=== PATIENT | male | born 1980 | race Caucasian/White ===

== ENCOUNTER → 2020-05-25 | Outpatient (CLI) | payer OTHER ==
[2020-05-25 19:25] LABS: INR 0.94 (0.90-1.11); Prothrombin Time 10.3 sec (9.9-11.9)
[2020-05-25 20:45] LABS: HIV 2 AB Non-Reactive (Non-Reactive); HIV AB P24 Non-Reactive (Non-Reactive); HIV P24 AG Non-Reactive (Non-Reactive)
[2020-05-25 23:31] LABS: Hepatitis A Antibody IgM Non-Reactive (Non-Reactive); Hepatitis B Core IgM Non-Reactive (Non-Reactive); Hepatitis B Surface Antigen Non-Reactive (Non-Reactive); Hepatitis C IgG Antibody Reactive (Non-Reactive)
[2020-05-31 14:43] LABS: HCV Qualitative Result DETECTED (Not detected); HCV Quant Log 7.12 (<1.08)
== END | disposition home or self-care (01) ==
LOC: LABWHC1 10:40
PROVIDERS: ATTEND Nurse Practitioner
DX: B18.2 Chronic viral hepatitis C (principal)
CPT/HCPCS: 36415; 80074; 81596; 85610; 87390; 87522; 87902

== ENCOUNTER → 2020-05-29 | Outpatient (CLI) | payer OTHER ==
--- NOTE | 2020-05-29 15:55 | US ---
EXAMINATION TYPE: US liver DATE OF EXAM: 05/29/2020 COMPARISON: NONE CLINICAL HISTORY: B18.2 CHRONIC VIRAL HEP C. EXAM MEASUREMENTS: Liver Length: 13.4 cm Gallbladder Wall: Surgically absent CBD: 0.3 cm Right Kidney: 10.1 x 4.1 x 4.9 cm Pancreas: isoechoic oval area anterior to pancreas, possible lymph node measuring 1.1 0.6 x 0.8cm Liver: wnl Gallbladder: Surgically absent Evidence for sonographic Nieto's sign: no CBD: wnl Right Kidney: wnl IMPRESSION: 1. Oval isoechoic area adjacent to the pancreas. Lymph node could be within the differential. Recomme nd contrast CT abdomen with pancreas protocol for closer evaluation.
== END ==
LOC: RADUSWWP 07:14
PROVIDERS: ATTEND Internal Medicine Gastroenterology
DX: B18.2 Chronic viral hepatitis C (principal); K86.9 Disease of pancreas, unspecified
CPT/HCPCS: 76705

== ENCOUNTER 2020-09-14 07:20 | Inpatient (IN) | payer OTHER ==
--- NOTE | 2020-09-14 08:02 | ED ---
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 states last couple of days she's been hallucinating. Patient also had a visual problem 2 days ago for about 12 hours she stated he couldn't see out of his left eye very well. Patient states it's all resolved. Patient denies any headache patient denies any numbness or focal weakness. Patient states morning for about 5 minutes he saw a lump in his stomach that went up into his chest he said he could actually see a lump about 3 inches above his chest wall. Patient's did not see this which she was not with him at the time. Patient states it hurt very very little but it was more like a slight discomfort but there was no difficulty breathing or shortness of breath patient denies any recent fever chills patient denies any nausea vomiting diarrhea. Patient states currently he has no symptoms whatsoever. Patient's does state that he continues to have hallucinations and she's not sure if this was a hallucination or not. - Related Data Home Medications Medication Instructions Recorded Confirmed Acetaminophen [Tylenol] 650 mg PO Q4H PRN 09/14/20 09/14/20 Omeprazole 20 mg PO DAILY 09/14/20 09/14/20 Allergies Allergy/AdvReac Type Severity Reaction Status Date / Time No Known Allergies Allergy Verified 09/14/20 09:45 Review of Systems ROS Statement: Those systems with pertinent positive or pertinent negative responses have been documented in the HPI. ROS Other: All systems not noted in ROS Statement are negative. Past Medical History History of Any Multi-Drug Resistant Organisms: None Reported Past Surgical History: Cholecystectomy Additional Past Surgical History / Comment(s): Barretts Esophogus, GERD, HEP C, right knee pain sx Past Psychological History: No Psychological Hx Reported Smoking Status: Current every day smoker Past Alcohol Use History: Occasional Past Drug Use History: Marijuana General Exam - General Exam Comments Initial Comments: GENERAL: Patient is well-developed and well-nourished. Patient is nontoxic and well-h ydrated and is in mild distress. ENT: Neck is soft and supple. No significant lymphadenopathy is noted. Oropharynx is clear. Moist mucous membranes. Neck has full range of motion without eliciting any pain. EYES: The sclera were anicteric and conjunctiva were pink and moist. Extraocular mov ements were intact and pupils were equal round and reactive to light. Eyelids were unremarkable. PULMONARY: Unlabored respirations. Good breath sounds bilaterally. No audible rales rhonchi or wheezing was noted. CARDIOVASCULAR: Patient is tachycardic at 120 beats a minute ABDOMEN: Patient has some expiratory wheezing. SKIN: Skin is clear with no lesions or rashes and otherwise unremarkable. NEUROLOGIC: Patient is alert and oriented x3. Cranial nerves II through XII are grossly intact. Motor and sensory are also intact. Normal speech, volume and content. Symmetrical smile. MUSCULOSKELETAL: Normal extremities with adequate strength and full range of motion. No lower extremity swelling or edema. No calf tenderness. LYMPHATICS: No significant lymphadenopathy is noted PSYCHIATRIC: Normal psychiatric evaluation. The patient does talk about this bulge in his abdomen up into his chest that was higher than his chest wall and may or may not be a hallucinations difficult to tell Limitations: no limitations Course Vital Signs 09/14/20 09/14/20 09/14/20 07:21 08:26 08:30 Temperature 97.6 F 99 F Pulse Rate 98 98 Respiratory 16 14 Rate Blood Pressure 118/73 136/107 O2 Sat by Pulse 99 97 Oximetry 09/14/20 09:10 Temperature Pulse Rate 103 H Respiratory 18 Rate Blood Pressure 137/84 O2 Sat by Pulse 99 Oximetry Medical Decision Making - Medical Decision Making EKG shows sinus tachycardia at 114 bpm DC interval 242 QRS is 92 QT interval 336 QTC is 463. Patient's EKG shows no ST segment elevation or depression. CT of the brain shows no acute normalities. Chest x-ray shows no acute normalities. Patient does admit to doing methamphetamine. I spoke with Mr. Charles hospitalist agreed to admit the patient admitted the patient wrote admitting orders. - Lab Data Result diagrams: 09/14/20 07:55 09/14/20 07:55 Lab Results 09/14/20 09/14/20 09/14/20 Range/Units 07:55 07:55 07:55 WBC 10.2 (3.8-10.6) k/uL RBC 4.92 (4.30-5.90) m/uL Hgb 17.4 (13.0-17.5) gm/dL Hct 49.0 (39.0-53.0) % MCV 99.7 (80.0-100.0) fL MCH 35.4 H (25.0-35.0) pg MCHC 35.5 (31.0-37.0) g/dL RDW 12.8 (11.5-15.5) % Plt Count 274 (150-450) k/uL MPV 7.3 Neutrophils % 64 % Lymphocytes % 25 % Monocytes % 7 % Eosinophils % 1 % Basophils % 1 % Neutrophils # 6.6 (1.3-7.7) k/uL Lymphocytes # 2.6 (1.0-4.8) k/uL Monocytes # 0.8 (0-1.0) k/uL Eosinophils # 0.1 (0-0.7) k/uL Basophils # 0.1 (0-0.2) k/uL PT 10.7 (9.0-12.0) sec INR 1.0 (<1.2) APTT 24.6 (22.0-30.0) sec Sodium 133 L (137-145) mmol/L Potassium 3.5 (3.5-5.1) mmol/L Chloride 96 L (98-107) mmol/L Carbon Dioxide 26 (22-30) mmol/L Anion Gap 11 mmol/L BUN 26 H (9-20) mg/dL Creatinine 1.40 H (0.66-1.25) mg/dL Est GFR (CKD-EPI)AfAm 72 (>60 ml/min/1.73 sqM) Est GFR (CKD-EPI)NonAf 63 (>60 ml/min/1.73 sqM) Glucose 119 H (74-99) mg/dL Calcium 10.3 H (8.4-10.2) mg/dL Magnesium 2.0 (1.6-2.3) mg/dL Total Bilirubin 1.4 H (0.2-1.3) mg/dL AST 49 (17-59) U/L ALT 31 (4-49) U/L Alkaline Phosphatase 75 (38-126) U/L Troponin I (0.000-0.034) ng/mL Total Protein 8.1 (6.3-8.2) g/dL Albumin 5.1 H (3.5-5.0) g/dL Amylase 63 (30-110) U/L Lipase 125 (23-300) U/L Urine Opiates Screen (NotDetected) Ur Oxycodone Screen (NotDetected) Urine Methadone Screen (NotDetected) Ur Propoxyphene Screen (NotDetected) Ur Barbiturates Screen (NotDetected) U Tricyclic Antidepress (NotDetected) Ur Phencyclidine Scrn (NotDetected) Ur Amphetamines Screen (NotDetected) U Methamphetamines Scrn (NotDetected) U Benzodiazepines Scrn (NotDetected) Urine Cocaine Screen (NotDetected) U Marijuana (THC) Screen (NotDetected) Serum Alcohol <10 mg/dL 09/14/20 09/14/20 Range/Units 07:55 07:56 WBC (3.8-10.6) k/uL RBC (4.30-5.90) m/uL Hgb (13.0-17.5) gm/dL Hct (39.0-53.0) % MCV (80.0-100.0) fL MCH (25.0-35.0) pg MCHC (31.0-37.0) g/dL RDW (11.5-15.5) % Plt Count (150-450) k/uL MPV Neutrophils % % Lymphocytes % % Monocytes % % Eosinophils % % Basophils % % Neutrophils # (1.3-7.7) k/uL Lymphocytes # (1.0-4.8) k/uL Monocytes # (0-1.0) k/uL Eosinophils # (0-0.7) k/uL Basophils # (0-0.2) k/uL PT (9.0-12.0) sec INR (<1.2) APTT (22.0-30.0) sec Sodium (137-145) mmol/L Potassium (3.5-5.1) mmol/L Chloride (98-107) mmol/L Carbon Dioxide (22-30) mmol/L Anion Gap mmol/L BUN (9-20) mg/dL Creatinine (0.66-1.25) mg/dL Est GFR (CKD-EPI)AfAm (>60 ml/min/1.73 sqM) Est GFR (CKD-EPI)NonAf (>60 ml/min/1.73 sqM) Glucose (74-99) mg/dL Calcium (8.4-10.2) mg/dL Magnesium (1.6-2.3) mg/dL Total Bilirubin (0.2-1.3) mg/dL AST (17-59) U/L ALT (4-49) U/L Alkaline Phosphatase (38-126) U/L Troponin I 0.014 (0.000-0.034) ng/mL Total Protein (6.3-8.2) g/dL Albumin (3.5-5.0) g/dL Amylase (30-110) U/L Lipase (23-300) U/L Urine Opiates Screen Not Detected (NotDetected) Ur Oxycodone Screen Not Detected (NotDetected) Urine Methadone Screen Not Detected (NotDetected) Ur Propoxyphene Screen Not Detected (NotDetected) Ur Barbiturates Screen Not Detected (NotDetected) U Tricyclic Antidepress Not Detected (NotDetected) Ur Phencyclidine Scrn Not Detected (NotDetected) Ur Amphetamines Screen Detected H (NotDetected) U Methamphetamines Scrn Detected H (NotDetected) U Benzodiazepines Scrn Not Detected (NotDetected) Urine Cocaine Screen Not Detected (NotDetected) U Marijuana (THC) Screen Detected H (NotDetected) Serum Alcohol mg/dL Disposition Clinical Impression: Visual disturbance, TIA (transient ischemic attack), Chest pain, Renal insufficiency, Methamphetamine abuse, Hallucinations Disposition: ADMITTED IP TO THIS HOSP Referrals: Bernardo Brown MD [Primary Care Provider] - 1-2 days Time of Disposition: 09:45
--- NOTE | 2020-09-14 08:16 | CT ---
EXAMINATION TYPE: CT brain wo con DATE OF EXAM: 09/14/2020 COMPARISON: None HISTORY: loss of vision Lt eye, hallucinations CT DLP: 1074.[address] of the brain was performed. The ventricles, basal cisterns and sulci overlying the cerebral convexities demonstrate a normal appe arance. There is no evidence for intracranial hemorrhage or sulcal effacement. No mass effects are seen. Osseous calvarium is intact. If symptoms persist consider MRI as clinically warranted. IMPRESSION: 1. No acute intracranial process is seen at this time.
[2020-09-14] MEDS ORDERED: SODIUM CHLORIDE 0.9% 1,000 ML IV ONE (08:20)
[2020-09-14] MEDS ORDERED: SODIUM CHLORIDE 0.9% 500 ML 500 ML IV ONE (08:20)
[2020-09-14 08:21] LABS: Basophils # (A) 0.1 k/uL (0-0.2); Basophils % (A) 1 %; Eosinophils # (A) 0.1 k/uL (0-0.7); Eosinophils % (A) 1 %; HGB 17.4 gm/dL (13.0-17.5); Lymphocytes # (A) 2.6 k/uL (1.0-4.8); Lymphocytes % (A) 25 %; MCH 35.4 pg (25.0-35.0); MCHC 35.5 g/dL (31.0-37.0); MCV 99.7 fL (80.0-100.0); Mean Platelet Volume 7.3; Monocytes # (A) 0.8 k/uL (0-1.0); Monocytes % (A) 7 %; Neutrophils # (A) 6.6 k/uL (1.3-7.7); Neutrophils % (A) 64 %; Platelet Count 274 k/uL (150-450); RBC 4.92 m/uL (4.30-5.90); RDW 12.8 % (11.5-15.5); WBC 10.2 k/uL (3.8-10.6)
--- NOTE | 2020-09-14 08:22 | XR ---
EXAMINATION TYPE: XR chest 2V DATE OF EXAM: 09/14/2020 COMPARISON: NONE HISTORY: odd sensation in his chest this am. Chest distended and felt like something came out from hi s lower ribcage lasted about 5 mins. TECHNIQUE: Frontal and lateral views of the chest are obtained. FINDINGS: Heart size is within normal limits. Trachea is midline. No focal consolidation, pneumothor ax or pleural effusion. Hyperaeration lungs, flattening of the diaphragms and increased retrosternal airspace suggestive of COPD. IMPRESSION: 1. No acute pulmonary disease. COPD.
[2020-09-14 08:29] LABS: ALT 31 U/L (4-49); AST 49 U/L (17-59); African American GFR (CKD) 72 (>60 ml/min/1.73 sqM); Albumin 5.1 g/dL (3.5-5.0); Alcohol <10 mg/dL; Alkaline Phosphatase 75 U/L (38-126); Amylase 63 U/L (30-110); Anion Gap 11 mmol/L; Blood Urea Nitrogen 26 mg/dL (9-20); Calcium 10.3 mg/dL (8.4-10.2); Carbon Dioxide 26 mmol/L (22-30); Chloride 96 mmol/L (98-107); Glucose 119 mg/dL (74-99); Lipase 125 U/L (23-300); Non-African American GFR(CKD) 63 (>60 ml/min/1.73 sqM); Potassium 3.5 mmol/L (3.5-5.1); Sodium 133 mmol/L (137-145); Total Bilirubin 1.4 mg/dL (0.2-1.3); Total Protein 8.1 g/dL (6.3-8.2)
[2020-09-14 08:34] LABS: Amphetamine Screen,Urine Detected (NotDetected); Barbiturate Screen,Urine Not Detected (NotDetected); Benzodiazepines Screen,Urine Not Detected (NotDetected); Cocaine Screen,Urine Not Detected (NotDetected); Methadone Screen, Urine Not Detected (NotDetected); Opiate Screen,Urine Not Detected (NotDetected); Oxycodone Screen, Urine Not Detected (NotDetected); Phencyclidine Screen,Urine Not Detected (NotDetected); Tricyclic Antidepressant,Urine Not Detected (NotDetected); Urn Cannabinoid Scrn Detected (NotDetected)
[2020-09-14 08:37] LABS: Partial Thromboplastin Time 24.6 sec (22.0-30.0); Prothrombin Time 10.7 sec (9.0-12.0)
[2020-09-14] MEDS ORDERED: ASPIRIN 325 MG TAB PO STA (09:38)
[2020-09-14] MEDS ORDERED: LORazepam 2 MG/ML INJ IV STA ×2 (13:09→15:39)
[2020-09-14] MEDS: NICOTINE 21MG/24HR PATCH TRANSDERM SCH (13:32)
[2020-09-14] MEDS ORDERED: LORazepam 1 MG TAB PO PRN (16:47)
--- NOTE | 2020-09-14 16:55 | P.HPIM ---
History of Present Illness Patient is a pleasant 40-year-old male came in because of hallucinations. Patient is definitely hyperactive with a dilated pupils consistent with the amphetamine overdose. 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 Patient is definitely dehydrated with a serum creatinine of 1.40. Additionally . The tell me that the patient had an episode of for double vision in the right eye and flickering of her right eye lid. Which lasted for about an hour. Because of this reason ER consulted the neurology. Although this may be totally related to his drug use. CT of the head did not show any significant abnormality. REVIEW OF SYSTEMS: CONSTITUTIONAL: No fever, no malaise, no fatigue. HEENT: No recent visual problems or hearing problems. Denied any sore throat. CARDIOVASCULAR: No chest pain, orthopnea, PND, no palpitations, no syncope. PULMONARY: No shortness of breath, no cough, no hemoptysis. GASTROINTESTINAL: No diarrhea, no nausea, no vomiting, no abdominal pain. NEUROLOGICAL: No headaches, no weakness, no numbness. HEMATOLOGICAL: Denies any bleeding or petechiae. GENITOURINARY: Denies any burning micturition, frequency, or urgency. MUSCULOSKELETAL/RHEUMATOLOGICAL: Denies any joint pain, swelling, or any muscle pain. ENDOCRINE: Denies any polyuria or polydipsia. The rest of the 14-point review of systems is negative. PHYSICAL EXAMINATION: GENERAL: The patient is alert and oriented x3, not in any acute distress. Well developed, well nourished. She and is hyperactive HEENT: Dilated pupils nonreactive. EOMI. No scleral icterus. No conjunctival pallor. Normocephalic, atraumatic. No pharyngeal erythema. No thyromegaly. CARDIOVASCULAR: S1 and S2 present. No murmurs, rubs, or gallops. PULMONARY: Chest is clear to auscultation, no wheezing or crackles. ABDOMEN: Soft, nontender, nondistended, normoactive bowel sounds. No palpable organomegaly. MUSCULOSKELETAL: No joint swelling or deformity. EXTREMITIES: No cyanosis, clubbing, or pedal edema. NEUROLOGICAL: Gross neurological examination did not reveal any focal deficits. SKIN: No rashes. Assessment and plan -Amphetamine and marijuana overdose: We'll use as needed Ativan for sleep and anxiety. -Dehydration secondary to amphetamines patient will be started on 1 13 mL of normal saline. -Transient episode of double vision vision in the right eye I do not believe patient has a TIA and this is again related to drug use -Hypovolemic hyponatremia secondary to dehydration IV fluids as mentioned above -History of hepatitis C related to follow up with gastro-oncology as an outpatient DVT prophylaxis: Early ambulation, GI prophylaxis Pepcid Past Medical History Past Medical History: GERD/Reflux History of Any Multi-Drug Resistant Organisms: None Reported Past Surgical History: Cholecystectomy Additional Past Surgical History / Comment(s): Barretts Esophogus, GERD, HEP C, right knee pain sx Past Anesthesia/Blood Transfusion Reactions: No Reported Reaction Past Psychological History: No Psychological Hx Reported Smoking Status: Current every day smoker Past Alcohol Use History: Occasional Past Drug Use History: Marijuana Medications and Allergies Home Medications Medication Instructions Recorded Confirmed Type Acetaminophen [Tylenol] 650 mg PO Q4H PRN 09/14/20 09/14/20 History Omeprazole 20 mg PO DAILY 09/14/20 09/14/20 History Allergies Allergy/AdvReac Type Severity Reaction Status Date / Time No Known Allergies Allergy Verified 09/14/20 09:45 Physical Exam Vitals: Vital Signs Temp Pulse Resp BP BP Pulse Ox 09/14/20 16:00 98.2 F 103/65 97 09/14/20 12:37 102 H 19 131/82 98 09/14/20 10:00 101 H 18 137/84 97 09/14/20 09:10 103 H 18 137/84 99 09/14/20 08:30 98 14 136/107 97 09/14/20 08:26 99 F 09/14/20 07:21 97.6 F 98 16 118/73 99 Intake and Output 09/14/20 09/14/20 09/14/20 06:59 14:59 22:59 Other: Weight 71.214 kg 71.214 kg Results CBC & Chem 7: 09/14/20 07:55 09/14/20 07:55 Labs: Abnormal Lab Results - Last 24 Hours (Table) 09/14/20 09/14/20 09/14/20 Range/Units 07:55 07:55 07:56 MCH 35.4 H (25.0-35.0) pg Sodium 133 L (137-145) mmol/L Chloride 96 L (98-107) mmol/L BUN 26 H (9-20) mg/dL Creatinine 1.40 H (0.66-1.25) mg/dL Glucose 119 H (74-99) mg/dL Calcium 10.3 H (8.4-10.2) mg/dL Total Bilirubin 1.4 H (0.2-1.3) mg/dL Albumin 5.1 H (3.5-5.0) g/dL Ur Amphetamines Screen Detected H (NotDetected) U Methamphetamines Scrn Detected H (NotDetected) U Marijuana (THC) Screen Detected H (NotDetected)
[2020-09-14] MEDS ORDERED: IPRATROPIUM-ALBUTEROL 3 ML NEB INHALATION PRN (17:43)
[2020-09-14] MEDS: SODIUM CHLORIDE 0.9% 1,000 ML IV SCH (17:46)
[2020-09-14] MEDS: FAMOTIDINE 20 MG TAB PO SCH (19:00)
[2020-09-14] MEDS: DOXYCYCLINE 100 MG CAP PO SCH (19:00)
[2020-09-14 21:52] VITALS: RESP 18
--- NOTE | 2020-09-14 22:08 | P.CNNES ---
History of Present Illness Consult date: 09/14/20 Requesting physician: Erik Hernandez Reason for Consult: TIA, visual disturbance History of Present Illness: Patient is a 40-year-old male came to the hospital this morning at 7:20 AM for hallucinations and visual disturbance. Patient has history of hepatitis C secondary to previous history of IV drug use with heroin (none for 20 years as per patient's ). He also has history of heavy alcohol drinking. Patient apparently on 09/11/2020 did a line of methamphetamine. He did this for the first time ever in his life. The following day on Thursday, patient was sitting at the couch at 11 PM, when he had an episode of loss of vision in both eyes, that lasted for 5 minutes. He could not see. Once the vision cleared, he noticed double vision. Patient's noticed that his left eye would have nystagmus medially whereas the right eye was looking straight ahead. He noticed double vision with it. He went to sleep. The next morning on , which is yesterday, all day he had hallucinations, seeing his nephew in the house who was not there, he was telling his that the neighbors are throwing garbage in their yard, although nothing was there. He was seeing smoke coming out of stuff. This morning on Thursday, the symptoms have resolved, but patient's got concerned and decided to bring him to the hospital. There was no droop E face, slurred speech focal weakness numbness or tingling or balance issues. No previous history of strokes TIA. Vital signs on arrival blood pressure 118/73, pulse of 98, temperature 97.6. CT head negative. Chest x-ray showed no no acute pulmonary disease. COPD. EKG shows sinus tachycardia. Blood test shows normal CBC, PT/PTT, sodium 133 p otassium 3.5, BUN 26, creatinine 1.40. Hepatic panel is normal. Urine drug screen positive for amphetamines, methamphetamine and marijuana. Patient is hepatitis C positive. HIV negative. Patient takes omeprazole and Tylenol. Patient smokes 1-1/2 pack per day for last 15 years. He also used to drink very heavily, 15 beers a day, only very recently cutting back. He drank 2 beers yesterday, but the day before he drank 15 beers. Patient also has hepatitis C, is undergoing evaluation for antiviral treatment. Patient denies hypertension or diabetes. Review of Systems None at present. All symptoms resolved. All 14 point review of systems reviewed and noncontributory. Past Medical History History of Any Multi-Drug Resistant Organisms: None Reported Past Surgical History: Cholecystectomy Additional Past Surgical History / Comment(s): Barretts Esophogus, GERD, HEP C, right knee pain sx Past Psychological History: No Psychological Hx Reported Smoking Status: Current every day smoker Past Alcohol Use History: Occasional Past Drug Use History: Marijuana Medications and Allergies Home Medications Medication Instructions Recorded Confirmed Type Acetaminophen [Tylenol] 650 mg PO Q4H PRN 09/14/20 09/14/20 History Omeprazole 20 mg PO DAILY 09/14/20 09/14/20 History Allergies Allergy/AdvReac Type Severity Reaction Status Date / Time No Known Allergies Allergy Verified 09/14/20 09:45 Physical Examination - Vital Signs Vital Signs: Vital Signs Temp Pulse Resp BP Pulse Ox 09/14/20 10:00 101 H 18 137/84 97 09/14/20 09:10 103 H 18 137/84 99 09/14/20 08:30 98 14 136/107 97 09/14/20 08:26 99 F 09/14/20 07:21 97.6 F 98 16 118/73 99 Intake and Output 09/13/20 09/14/20 09/14/20 22:59 06:59 14:59 Other: Weight 71.214 kg Patient is a young male, in no acute distress. Patient is alert awake oriented to time place and person. Speech and language functions are normal. Attention, concentration and fund of knowledge is adequate. On cranial examination, pupils are equal, round and reacting to light, visual martinez are full on confrontation, extraocular muscles are grossly intact with no nystagmus. On detailed testing, it appears patient sometimes has disconjugate gaze, and the left eye would turn inside. Some ?myoclonic type jerks were noted at time. Face is symmetric, tongue protrudes to the midline. Palatal elevation and sensation normal, hearing and shoulder shrug normal, facial sensation normal. Shoulder shrug normal. On muscle strength testing, there is no pronator drift and the strength is normal in arms and legs distally and proximally. Deep tendon reflexes are 1+ to 2, symmetric and plantars downgoing. Sensory to touch is equal with no neglect. Cerebellar function showed no ataxia for [id number] testing. No dysdiadochokinesia. Tone and bulk of muscles normal. Gait normal. On general examination, there is no carotid bruit or murmur, S1-S2 audible. Abdomen is soft nontender. Chest is clear. Peripheral pulses are present. No edema. Results - Laboratory Findings CBC and BMP: 09/14/20 07:55 09/14/20 07:55 Abnormal Lab Findings: Abnormal Labs 09/14/20 09/14/20 09/14/20 07:55 07:55 07:56 MCH 35.4 H Sodium 133 L Chloride 96 L BUN 26 H Creatinine 1.40 H Glucose 119 H Calcium 10.3 H Total Bilirubin 1.4 H Albumin 5.1 H Ur Amphetamines Screen Detected H U Methamphetamines Scrn Detected H U Marijuana (THC) Screen Detected H Assessment and Plan Assessment: * 40-year-old male with transient episode of vision loss (lasting 5 minutes), followed by diplopia, that lasted for a few hours. Patient's also noticed some adduction nystagmus only with the left eye. At present patient's examination is only significant for some intermittent disconjugate gaze, with no fixed extraocular muscles palsy. Patient was noticing some double vision when focusing. Uncertain if related to extraocular muscles weakness or neurological based. * Hallucinations, probably related to substance use. Patient's urine positive for amphetamines and marijuana. * History of alcoholism. * Hepatitis C positive. * Tobacco use. Plan: * MRI brain with and without contrast rule out CVA or other inflammatory process. * Carotid Doppler. * TSH, thiamine level, B12, folate, RPR. * 2-D echo with bubble study. * Aspirin 81 mg daily. * Recommend abstinence from alcohol, tobacco and from substance abuse. * Dr. Ambriz will resume neurology service in a.m.
[2020-09-14] MEDS ORDERED: QUEtiapine 50 MG TAB PO STA (23:20)
[2020-09-14] MEDS ORDERED: HALOPERIDOL LACTATE 5 MG/ML 1 ML VIAL IM PRN (23:21)
[2020-09-15] MEDS ORDERED: ZIPRASIDONE 20 MG VIAL IM STA (01:27)
[2020-09-15] MEDS: SODIUM CHLORIDE 0.9% 1,000 ML IV SCH ×2 (02:37→08:59)
--- NOTE | 2020-09-15 03:35 | P.MHFACE ---
Face to Face Restrain/Seclus - Evaluation Patient's Immediate Situation: Endangers others' safety, Endangers staff safety, Violent behavior Patient's Reaction to the Intervention: Uncooperative, Angry, Hostile, Bizarre, Restless, Resistive to care Patient's Medical & Behavioral Condition: Awake, Agitated, Auditory hallucinations, Visual hallucinations, Bizarre behavior Need to Continue or Terminate Restraint or Seclusion: Continue Face to Face Eval of Restraint Date: 09/15/20 Face to Face Eval of Restraint Time: 01:30
[2020-09-15 07:49] VITALS: BP 147/88; PULSE 77; TEMP 96.8
[2020-09-15] MEDS: FAMOTIDINE 20 MG TAB PO SCH (08:04)
[2020-09-15] MEDS: DOXYCYCLINE 100 MG CAP PO SCH (08:04)
[2020-09-15] MEDS: NICOTINE 21MG/24HR PATCH TRANSDERM SCH (08:05)
[2020-09-15] MEDS ORDERED: ASPIRIN 325 MG TAB PO SCH (09:00)
[2020-09-15 09:21] LABS: HCT 44.7 % (39.6-50.0); HGB 15.1 g/dL (13.0-17.0); MCH 34.4 pg (27.0-32.0); MCHC 33.8 g/dL (32.0-37.0); MCV 101.8 fL (80.0-97.0); Mean Platelet Volume 9.9 fL (9.5-12.2); Platelet Count 230 X 10*3/uL (140-440); RBC 4.39 X 10*6/uL (4.40-5.60); RDW 13.1 % (11.5-14.5); WBC 6.96 X 10*3/uL (4.50-10.00)
[2020-09-15 10:24] LABS: Cocaine Screen,Urine Not Detected (NotDetected); Phencyclidine Screen,Urine Not Detected (NotDetected); Urn Cannabinoid Scrn Detected (NotDetected)
[2020-09-15 10:25] LABS: Amphetamine Screen,Urine Detected (NotDetected); Barbiturate Screen,Urine Not Detected (NotDetected); Benzodiazepines Screen,Urine Detected (NotDetected); Methadone Screen, Urine Not Detected (NotDetected); Opiate Screen,Urine Not Detected (NotDetected); Oxycodone Screen, Urine Not Detected (NotDetected); Tricyclic Antidepressant,Urine Not Detected (NotDetected)
[2020-09-15 10:39] LABS: African American GFR (CKD) 129.5 (60.0-200.0); BUN/Creat Ratio 17.5 Ratio (12.00-20.00); Chol/HDL Ratio 3.04; LDL Cholesterol,Calculated 73.2 mg/dL (0.0-131.0); Non-African American GFR(CKD) 111.7 (60.0-200.0); Potassium 3.4 mmol/L (3.5-5.5); VLDL Calculation 26.8 mg/dL (5.00-40.00)
[2020-09-15 11:56] VITALS: BMI 23.8
[2020-09-15] MEDS ORDERED: POTASSIUM CHLORIDE ER 20 MEQ TAB.ER PO STA (12:19)
--- NOTE | 2020-09-15 12:44 | ECHOF ---
Referral Reason:TIA MEASUREMENTS -------- HEIGHT: 172.7 cm WEIGHT: 71.2 kg BP: 147/88 RVIDd: 3.4 cm (< 3.3) IVSd: 1.1 cm (0.6 - 1.1) LVIDd: 4.4 cm (3.9 - 5.3) LVPWd: 1.2 cm (0.6 - 1.1) IVSs: 1.7 cm LVIDs: 3.3 cm LVPWs: 1.6 cm LA Diam: 2.6 cm (2.7 - 3.8) LAESV Index (A-L): 18.79 ml/m Ao Diam: 3.6 cm (2.0 - 3.7) AV Cusp: 2.2 cm (1.5 - 2.6) MV EXCURSION: 21.150 mm (> 18.000) MV EF SLOPE: 148 mm/s (70 - 150) EPSS: 0.2 cm MV E Chavez: 0.83 m/s MV DecT: 289 ms MV A Chavez: 0.62 m/s MV E/A Ratio: 1.34 FINDINGS -------- Sinus rhythm. This was a technically good study. The left ventricular size is normal. There is borderline concentric left ventricular hypertrophy. Overall left ventricular systolic function is normal with, an EF between 55 - 60 %. The right ventricle is mildly enlarged. Normal LA size by volume 22+/-6 ml/m2. The right atrial size is normal. Eustachian valve seen in the right atrium or small mass Contrast study was performed with 3 iv injections of 8 ccs of agitated normal saline, at rest, with c ough and post-Valsalva maneuver. Positive sailine bubble study. PFO NOTED The aortic valve is trileaflet, and appears structurally normal. No aortic stenosis or regurgitation. The mitral valve is normal. There is trace mitral regurgitation. The tricuspid valve appears structurally normal. Trace tricuspid regurgitation present. There is no pulmonic regurgitation present. The aortic root size is normal. Normal inferior vena cava with normal inspiratory collapse consistent with estimated right atrial pre ssure of 5 mmHg. There is no pericardial effusion. CONCLUSIONS -------- 1. There is borderline concentric left ventricular hypertrophy. 2. Overall left ventricular systolic function is normal with, an EF between 55 - 60 %. 3. The right ventricle is mildly enlarged. 4. Normal LA size by volume 22+/-6 ml/m2. 5. Contrast study was performed with 3 iv injections of 8 ccs of agitated normal saline, at rest, wit h cough and post-Valsalva maneuver. 6. Positive sailine bubble study. PFO NOTED 7. The aortic valve is trileaflet, and appears structurally normal. No aortic stenosis or regurgitati on. 8. There is trace mitral regurgitation. 9. There is no pericardial effusion. [employer] HELPER: Rachel Shen RDCS
--- NOTE | 2020-09-15 13:40 | P.DS ---
Providers Date of admission: 09/15/20 09:37 Attending physician: Deanne Valdivia Consults: 09/14/20 09:39 Consult Physician Routine Consulting Provider: Yancy Bañuelos Consult Reason/Comments: TIA, visual disturbance Do you want consulting provider notified?: Yes [facility] care [facility] Course: 40-year-old male came in because of hallucinations. Patient is definitely hyperactive with a dilated pupils consistent with the amphetamine overdose. 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 Patient is definitely dehydrated with a serum creatinine of 1.40. Additionally . The tell me that the patient had an episode of for double vision in the right eye and flickering of her right eyelid. Which lasted for about an hour. Because of this reason ER consulted the neurology. Although this may be totally related to his drug use. CT of the head did not show any significant abnormality. 09/15/2020 Per neurology assessment patient had an episode of visual loss lasting for 5 minutes along with diplopia and adduction nystagmus. And the neurologist recommended an MRI along with the carotid Doppler both of which are pending echo cardiac rhythm was obtained which was within normal limits except for a patent PFO. I was called multiple times last night because of her episodes of agitation. Patient pupils today are reactive to light and not dilated patient is presently not confused not hyperactive or agitated at this time. Patient is very pleasant when I valid the patient. Once we get the results of the MRI and carotid Doppler that negative patient will be discharged today. Patient's renal failure improved patient creatinine normalized tachycardia resolved. Patient was well- hydrated. PHYSICAL EXAMINATION: GENERAL: The patient is alert and oriented x3, not in any acute distress. Well developed, well nourished. HEENT: Pupils are round and equally reacting to light. EOMI. No scleral icterus. No conjunctival pallor. Normocephalic, atraumatic. No pharyngeal erythema. No thyromegaly. CARDIOVASCULAR: S1 and S2 present. No murmurs, rubs, or gallops. PULMONARY: Chest is clear to auscultation, no wheezing or crackles. ABDOMEN: Soft, nontender, nondistended, normoactive bowel sounds. No palpable organomegaly. MUSCULOSKELETAL: No joint swelling or deformity. EXTREMITIES: No cyanosis, clubbing, or pedal edema. NEUROLOGICAL: Gross neurological examination did not reveal any focal deficits. SKIN: No rashes. Assessment and plan -Amphetamine and marijuana overdose: We'll use as needed Ativan for sleep and anxiety. -Dehydration secondary to amphetamines improved with IV fluids -Transient episode of double vision vision in the right eye patient had workup for several vascular accident -Hypovolemic hyponatremia secondary to dehydration IV fluids as mentioned above -History of hepatitis C related to follow up with gastroenterology Patient will be discharged today Plan - Discharge Summary Discharge Rx Participant: No New Discharge Prescriptions: New Doxycycline Monohydrate [Monodox] 100 mg PO BID 1 Days #2 cap No Action Omeprazole 20 mg PO DAILY Acetaminophen [Tylenol] 650 mg PO Q4H PRN PRN Reason: Pain Discharge Medication List Acetaminophen [Tylenol] 650 mg PO Q4H PRN 09/14/20 [History] Omeprazole 20 mg PO DAILY 09/14/20 [History] Doxycycline Monohydrate [Monodox] 100 mg PO BID 1 Days #2 cap 09/15/20 [Rx] Follow up Appointment(s)/Referral(s): Bernardo Brown MD [Primary Care Provider] - 3 Days Discharge Disposition: HOME SELF-CARE
--- NOTE | 2020-09-15 14:56 | MR ---
EXAMINATION TYPE: MR brain wo/w con DATE OF EXAM: 09/15/2020 COMPARISON: None HISTORY: Loss of vision Lt eye, hallucinations. Evaluate for TIA. CONTRAST: Standard multiplanar, multisequence MRI departmental protocol utilizing 7 mL intravenous Gadavist agustín olinium contrast. Ventricles have normal size. There is no mass effect nor midline shift. There is no sign of intracran ial hemorrhage. Diffusion images show no evidence of an acute infarct. There are a few scattered area s of white matter high signal in both cerebral hemispheres. Total number is approximately 10 and thes e are close to the hess-white matter junction. Foci measure up to 7 mm. These are seen more in the po sterior parietal lobes. The brainstem is intact. Corpus callosum is intact. Sella turcica appears normal. There is no evidence of orbital mass. There is some mucosal thickening in the nasopharynx and ethmoid sinus. The contrast images show no pathologic enhancement. There is normal enhancement of the venous sinuses . There is no evidence of a posterior fossa mass. Internal auditory canals appear normal. IMPRESSION: There are a few scattered white matter high signal foci that could relate to microvascular ischemia a nd less likely demyelinating disease. No enhancement. No evidence of cortical infarct.
--- NOTE | 2020-09-15 15:47 | US ---
EXAMINATION TYPE: US carotid duplex BILAT DATE OF EXAM: 09/15/2020 COMPARISON: NONE CLINICAL HISTORY: 40-year-old male TIA TECHNIQUE: Carotid duplex ultrasound examination. Direct upper criteria was utilized. FINDINGS: EXAM MEASUREMENTS: RIGHT: Peak Systolic Velocity (PSV) cm/sec ----- Right CCA: 124.0 ----- Right ICA: 126.0 ----- Right ECA: 171.0 ICA/CCA ratio: 0.95 RIGHT: End Diastole cm/sec ----- Right CCA: 28.6 ----- Right ICA: 35.3 ----- Right ECA: 20.7 LEFT: Peak Systolic Velocity (PSV) cm/sec ----- Left CCA: 158.0 ----- Left ICA: 142.0 ----- Left ECA: 150.0 ICA/CCA ratio: 0.90 LEFT: End Diastole cm/sec ----- Left CCA: 28.1 ----- Left ICA: 27.2 ----- Left ECA: 30.8 VERTEBRALS (direction of flow): Right Vertebral: Antegrade Left Vertebral: Antegrade Rhythm: Normal No significant stenosis seen by hess scale imaging. IMPRESSION: Minimal increased peak systolic velocity left ICA suspected to be due to turbulent flow as no appreci able narrowing plaque is identified on grayscale images. Overall parameters do not suggest a hemodyna mically significant ICA stenosis on either side. Criteria for Assigning % of Stenosis / Diameter reduction (Estimation based on the indirect measurements of the internal carotid artery velocities (ICA PSV). 1. Normal (no stenosis)=ICA PSV < 125 cm/s: ratio < 2.0: ICA EDV<40 cm/s. 2. Less than 50% stenosis=ICA PSV < 125 cm/s: ratio < 2.0: ICA EDV<40 cm/s. 3. 50 to 69% stenosis=ICA PSV of 125 to 230 cm/s: ration 2.0 ? 4.0: ICA EDV 40-100 cm/s. 4. Greater than 70% stenosis to near occlusion= ICA PSV > 230 cm/s: ratio > 4.0: ICA EDV > 100 cm/s. 5. Near occlusion= ICA PSV velocities may be low or undetectable: variable ratio and ICA EDV. 6. Total occlusion=unable to detect flow.
== END 2020-09-15 16:40 | disposition home or self-care (01) | DRG 918 ==
LOC: EC 07:20 → 6NMEDSUR 10:24 → OBSVTOIN 09-15 09:37
PROVIDERS: ADMIT Internal Medicine; ATTEND Internal Medicine
DX: T43.621A Poisoning by amphetamines, accidental (unintentional), initial encounter (principal); E87.1 Hypo-osmolality and hyponatremia; T40.7X1A Poisoning by cannabis (derivatives), accidental (unintentional), initial encounter; B19.20 Unspecified viral hepatitis C without hepatic coma; F12.90 Cannabis use, unspecified, uncomplicated; R07.89 Other chest pain; K21.9 Gastro-esophageal reflux disease without esophagitis; R44.1 Visual hallucinations; H53.2 Diplopia; F15.10 Other stimulant abuse, uncomplicated; E86.0 Dehydration; E86.1 Hypovolemia; H55.00 Unspecified nystagmus; K22.70 Barrett's esophagus without dysplasia; N19 Unspecified kidney failure; F17.210 Nicotine dependence, cigarettes, uncomplicated; Z79.899 Other long term (current) drug therapy
CPT/HCPCS: 36415; 70450; 70553; 71046; 80048; 80053; 80061; 80306; 80320; 82150; 83690; 83735; 84484; 85025; 85027; 85610; 85730; 93005; 93306; 93880; 96374; 99285